=== PATIENT | female | born 1990 | race Caucasian/White ===

== ENCOUNTER 2018-02-04 05:52 | Inpatient (IN) | payer OTHER ==
[2018-02-04] VITALS (12 sets, daily range): BP systolic 87–142; BP diastolic 44–85; PULSE 74–113; RESP 16–19; TEMP 97.6–98.3; O2SAT 98–100
[~2018-02-04] VITALS: Ht 162.6 cm; Wt 102.0 kg
[2018-02-04] MEDS ORDERED: PRENTAB7 (06:14)
[2018-02-04] MEDS ORDERED: VALT1TAB PO (06:14)
[2018-02-04] MEDS ORDERED: ceFAZolin 2 GM PREMIX 50 ML IV SCH (06:15)
[2018-02-04] MEDS ORDERED: LACTATED RINGER'S 1000 ML IV ONE (06:15)
[2018-02-04] MEDS ORDERED: LACTATED RINGER'S 1000 ML IV SCH (06:15)
[2018-02-04] MEDS ORDERED: CITRIC ACID-SODIUM CITRATE LIQ 30 ML UDC PO SCH (06:15)
[2018-02-04 07:07] LABS: AUTOMATED NEUTROPHIL # 7.3 TH/MM3 (1.8-7.7); BASOPHIL # 0.1 TH/MM3 (0-0.2); BASOPHIL % 0.5 % (0.0-2.0); EOSINOPHIL # 0.4 TH/MM3 (0-0.4); EOSINOPHIL % 4.2 % (0.0-4.0); HEMATOCRIT 33.4 % (35.0-46.0); HEMOGLOBIN 11.4 GM/DL (11.6-15.3); MEAN CELL VOLUME 84.6 FL (80.0-100.0); MEAN CORPUSCULAR HEMOGLOBIN 28.8 PG (27.0-34.0); MEAN CORPUSCULAR HGB CONC 34.1 % (32.0-36.0); MEAN PLATELET VOLUME 8.4 FL (7.0-11.0); MONO % 5.9 % (0.0-8.0); MONOCYTE # 0.6 TH/MM3 (0-0.9); NEUT % 70.4 % (16.0-70.0); PLATELET COUNT 187 TH/MM3 (150-450); RED BLOOD COUNT 3.95 MIL/MM3 (4.00-5.30); RED CELL DISTRIBUTION WIDTH 14.9 % (11.6-17.2); WHITE BLOOD COUNT 10.4 TH/MM3 (4.0-11.0)
[2018-02-04] MEDS ORDERED: MORPHINE SULFATE PF 5 MG/10 ML VIAL ONE (07:07)
[2018-02-04] MEDS ORDERED: ACETAMINOPHEN 1000 MG/100 ML 100 ML IV ONE ×2 (07:08→09:00)
[2018-02-04 08:53] LABS: BILIRUBIN, URINE NEG (NEG); BLOOD, URINE NEG (NEG); CALCIUM OXALATE CRYSTALS,URINE RARE /hpf; GLUCOSE,URINE NEG (NEG); KETONE, URINE NEG (NEG); MUCUS URINE MOD /lpf (OCC); NITRITE,URINE NEG (NEG); SQUAMOUS EPITHELIAL CELL URINE 15 /hpf (0-5); URINE COLOR YELLOW (YELLW/STRAW); URINE LEUKOCYTE ESTERASE MOD (NEG)
[2018-02-04] MEDS ORDERED: SIMETHICONE 80 MG CHEWABLE TAB PO PRN (09:00)
[2018-02-04] MEDS ORDERED: oxyCODONE/ACETAMINOPHEN 5 MG/325 MG TAB PO PRN (09:00)
[2018-02-04] MEDS ORDERED: SODIUM CHLORIDE 0.9% FLUSH 10 ML FLUSH IV FLUSH PRN (09:00)
[2018-02-04] MEDS ORDERED: ZOLPIDEM TARTRATE 5 MG TAB PO PRN (09:00)
[2018-02-04] MEDS ORDERED: OXYTOCIN 30 UNITS-500ML PREMIX 500 ML IV ONE (09:00)
[2018-02-04] MEDS: SODIUM CHLORIDE 0.9% FLUSH 10 ML FLUSH IV FLUSH SCH (09:00)
[2018-02-04] MEDS ORDERED: ONDANSETRON HCL 4 MG/2 ML VIAL IV PUSH PRN (09:00)
[2018-02-04] MEDS ORDERED: KETOROLAC TROMETHAMINE 60 MG/2 ML (IM) VIAL IM PRN ×2 (09:00)
[2018-02-04] MEDS ORDERED: OXYTOCIN 30 UNITS-500ML PREMIX 500 ML ONE (09:47)
[2018-02-04] MEDS ORDERED: OXYTOCIN 10 UNIT/ML AMP XX ONE (10:00)
[2018-02-04] MEDS ORDERED: PHENYLEPH/NS 1000 MCG/10 ML SYR IV ONE (12:00)
[2018-02-04] MEDS ORDERED: DEXAMETHASONE SOD PHOS 4 MG/ML VIAL IV ONE (12:00)
[2018-02-04] MEDS ORDERED: KETOROLAC TROMETHAMINE 30 MG/ML (IVP) VIAL IV PUSH ONE (12:00)
[2018-02-04] MEDS ORDERED: ePHEDrine/NS 25 MG/5 ML SYRINGE IV ONE (12:00)
[2018-02-04] MEDS ORDERED: LACTATED RINGER'S 1000 ML INJ 1,000 ML IV ONE (12:00)
[2018-02-04] MEDS ORDERED: STERILE WATER FOR INJECTION 20 ML VIAL IV ONE (12:00)
[2018-02-04] MEDS ORDERED: OXYTOCIN 10 UNIT/ML AMP IV ONE (12:00)
[2018-02-04] MEDS ORDERED: ceFAZolin INJ 1,000 MG VIAL IV ONE (12:00)
[2018-02-04] MEDS ORDERED: ONDANSETRON HCL 4 MG/2 ML VIAL IV ONE (12:00)
[2018-02-04] MEDS: LACTATED RINGER'S 1000 ML INJ 1,000 ML IV SCH ×2 (13:18→23:54)
[2018-02-04] MEDS ORDERED: OXYTOCIN 30 UNITS-500ML PREMIX 500 ML IV PRN (19:00)
--- NOTE | 2018-02-04 19:29 | PD.OP ---
Operative Report Date of Surgery: Feb 04, 2018 Preoperative Diagnosis: (1) Postoperative Diagnosis: (1) delivery, delivered, current hospitalization Procedure: Repeat Low transverse , lysis of adhesions Anesthesia: spinal Surgeon: Marilin Reyes MD Coagulating Operator(s): none Operation and Findings: After informed consent was obtained, she consented. Her previous incision is incised in the usual fashion. The underlying layer of fascia is reached using the Bovie. The fascia is incised in the midline and the incision is extended laterally. Irene clamps were used to elevate the fascia superiorly and inferiorly and the rectus muscles are dissected off. The peritoneum was identified and entered sharply. The bladder blade was inserted. The vesicouterine peritoneum was identified, tented open and entered sharply. The bladder blade was then reinserted. A transverse incision was made over the lower uterine segment to layer just exposing membranes; these were ruptured for clear fluid. The uterine incision was extended laterally digitally. The vertex is then delivered atraumatically with the vacuum. The remainder of the body is delivered through the incision. The cord is doubly clamped and cut. The infant is passed off to the waiting nursery team. Once this was done, attention is then turned back to the uterine field. The placenta is removed manually intact with three-vessel cord. The uterus was exteriorized, cleared of all clot and debris. The uterine incision was repaired using 1 Chromic suture in a running locked fashion. Additional stitches of O chromic suture were used to assure hemostasis. Once this was done attention was then turned back to the uterine incision which remained hemostatic. The uterus was returned to the abdominal cavity. The gutters were cleared of all clot and debris. Seprafilm was placed over the incision. The rectus muscles were re-approximated using 0 Chromic suture in interrupted fashion. The fascia was re-approximated using 1 Vicryl suture in a running fashion. The subcutaneous fat is irrigated and made hemostatic and re- approximated using 3-0 Chromic suture. The skin is closed using 3-0 Monocryl suture. Marilin Reyes MD Feb 04, 2018 19:29
[2018-02-04] MEDS: DOCUSATE SODIUM 50 MG/SENNA 8.6 MG TAB PO PRN (23:54)
[2018-02-04] MEDS: IBUPROFEN 600 MG TAB PO PRN (23:55)
[2018-02-05 04:00] VITALS: BP 131/64; PULSE 106; RESP 17; TEMP 97.6; O2SAT 96
[2018-02-05 06:26] LABS: AUTOMATED NEUTROPHIL # 10.6 TH/MM3 (1.8-7.7); BASOPHIL % 0.2 % (0.0-2.0); EOSINOPHIL # 0.2 TH/MM3 (0-0.4); EOSINOPHIL % 1.5 % (0.0-4.0); HEMATOCRIT 30.5 % (35.0-46.0); HEMOGLOBIN 10.2 GM/DL (11.6-15.3); LYMPH % 11.2 % (9.0-44.0); LYMPHOCYTE # 1.4 TH/MM3 (1.0-4.8); MEAN CELL VOLUME 83.9 FL (80.0-100.0); MEAN CORPUSCULAR HEMOGLOBIN 28.1 PG (27.0-34.0); MEAN CORPUSCULAR HGB CONC 33.5 % (32.0-36.0); MEAN PLATELET VOLUME 8.4 FL (7.0-11.0); MONO % 5.3 % (0.0-8.0); MONOCYTE # 0.7 TH/MM3 (0-0.9); NEUT % 81.8 % (16.0-70.0); PLATELET COUNT 168 TH/MM3 (150-450); RED BLOOD COUNT 3.63 MIL/MM3 (4.00-5.30); RED CELL DISTRIBUTION WIDTH 15.1 % (11.6-17.2); WHITE BLOOD COUNT 12.9 TH/MM3 (4.0-11.0)
[2018-02-05] MEDS: IBUPROFEN 600 MG TAB PO PRN ×3 (06:29→19:13)
[2018-02-05] MEDS: SODIUM CHLORIDE 0.9% FLUSH 10 ML FLUSH IV FLUSH SCH (07:53)
[2018-02-05 08:00] VITALS: BP 135/71; PULSE 103; RESP 20; TEMP 97.6; O2SAT 97
--- NOTE | 2018-02-05 10:58 | HHI.OB ---
Subjective Post Day: 1 Remarks doing well Objective Vitals/I&O Vital Signs Date Time Temp Pulse Resp B/P (MAP) Pulse Ox O2 Delivery O2 Flow Rate FiO2 02/05/18 08:00 97.6 20 97 02/05/18 08:00 103 135/71 (92) 02/05/18 04:00 97.6 106 17 96 02/05/18 04:00 131/64 (86) 02/04/18 23:49 98.3 102 19 114/71 (85) 02/04/18 20:33 98.3 105 18 114/69 (84) 02/04/18 13:00 98.3 89 18 98 02/04/18 13:00 142/71 (94) 02/04/18 11:00 98.3 89 18 98 02/04/18 11:00 142/71 (94) Objective Remarks GENERAL: Well-nourished, well-developed patient. ABDOMEN/GI: Abdomen soft, non-tender. Fundus: Firm, non-tender at umbilicus. GENITOURINARY: Light to moderate bleeding. EXTREMITIES: No cyanosis or edema, non-tender, without signs of DVT. Medications and IVs Current Medications Medications (Trade) Dose Ordered Sig/Vasyl Route Start Time Stop Time Status Last Admin (Bicitra Liq) 30 ml GIS WEB DEVELOPER PO 02/04/18 06:15 02/07/18 06:14 02/04/18 07:21 Cefazolin Sodium/ Dextrose 50 ml @ 100 mls/hr GIS WEB DEVELOPER IV 02/04/18 06:15 02/07/18 06:14 Oxytocin 500 ml @ 100 mls/hr UNSCH X1 PRN IV 02/04/18 19:00 02/05/18 18:59 (NS Flush) 2 ml BID IV FLUSH 02/04/18 09:00 (NS Flush) 2 ml UNSCH PRN IV FLUSH 02/04/18 09:00 (Mylicon Chew) 80 mg QID PRN PO 02/04/18 09:00 (Motrin) 600 mg Q6H PRN PO 02/04/18 09:00 02/05/18 06:29 (Percocet 5-325 Mg) 1 tab Q4H PRN PO 02/04/18 09:00 (Percocet 5-325 Mg) 2 tab Q4H PRN PO 02/04/18 09:00 (Idania-Colace) 2 tab Q12H PRN PO 02/04/18 09:00 02/04/18 23:54 (Ambien) 5 mg HS PRN PO 02/04/18 09:00 (M-M-R Ii Inj) 0.5 ml ONCE ONCE SQ 02/05/18 16:00 02/05/18 16:01 (Boostrix Inj) 0.5 ml ONCE ONCE IM 02/05/18 16:00 02/05/18 16:01 (Zofran Inj) 4 mg Q6H PRN IV PUSH 02/04/18 09:00 Assessment/Plan Problem List: (1) delivery, delivered, current hospitalization ICD Codes: O82 - Encounter for delivery without indication Néstor Lange MD Feb 05, 2018 10:58
--- NOTE | 2018-02-05 10:59 | HHI.DCPOC ---
Discharge Care Plan Diagnosis: (1) delivery, delivered, current hospitalization Report Symptoms to Your Doctor -Temperature above 100.5 degrees -Redness, of incision or excessive or foul smelling drainage -Unusual pain or calf pain -Increased vaginal bleeding -Painful or difficulty urinating -Feelings of extreme sadness or anxiety after 2 weeks Goals to Promote Your Health * To prevent worsening of your condition and complications * To maintain your health at the optimal level Directions to Meet Your Goals Take your medications as prescribed Follow your dietary instruction Follow activity as directed Ensure plenty of rest for recovery Drink fluids for hydration Keep your appointments as scheduled Take your immunizations and boosters as scheduled If your symptoms worsen call your PCP, if no PCP go to Urgent Care Center or Emergency Room Smoking is Dangerous to Your Health. Avoid second hand smoke Call the 24-hour crisis hotline for domestic abuse at Néstor Lange MD Feb 05, 2018 10:59
[2018-02-05] MEDS ORDERED: OXYC1TAB63 PO (11:00)
[2018-02-05] MEDS: DOCUSATE SODIUM 50 MG/SENNA 8.6 MG TAB PO PRN (13:11)
[2018-02-05] MEDS: oxyCODONE/ACETAMINOPHEN 5 MG/325 MG TAB PO PRN ×2 (13:12→19:13)
[2018-02-05] MEDS ORDERED: DIPHTH/TETANUS/ACEL PERTUSSIS (BOOSTER) 0.5 ML VIAL/PFS IM ONE (16:00)
[2018-02-05] MEDS ORDERED: MEASLES, MUMPS, RUBELLA VACCINE 0.5 ML VIAL SQ ONE (16:00)
[2018-02-05 21:08] VITALS: BP 131/77; PULSE 112; RESP 18; TEMP 98.3
[2018-02-06] MEDS: IBUPROFEN 600 MG TAB PO PRN (03:15)
[2018-02-06] MEDS: oxyCODONE/ACETAMINOPHEN 5 MG/325 MG TAB PO PRN (03:16)
--- NOTE | 2018-02-06 07:15 | HHI.OB ---
Subjective Post Day: 2 Remarks doing well Objective Vitals/I&O Vital Signs Date Time Temp Pulse Resp B/P (MAP) Pulse Ox O2 Delivery O2 Flow Rate FiO2 02/05/18 21:08 98.3 112 18 131/77 (95) 02/05/18 08:00 97.6 20 97 02/05/18 08:00 103 135/71 (92) Objective Remarks GENERAL: Well-nourished, well-developed patient. ABDOMEN/GI: Abdomen soft, non-tender. Fundus: Firm, non-tender at umbilicus. GENITOURINARY: Light to moderate bleeding. EXTREMITIES: No cyanosis or edema, non-tender, without signs of DVT. Medications and IVs Current Medications Medications (Trade) Dose Ordered Sig/Vasyl Route Start Time Stop Time Status Last Admin (Bicitra Liq) 30 ml DOCKET SPECIALIST PO 02/04/18 06:15 02/07/18 06:14 02/04/18 07:21 Cefazolin Sodium/ Dextrose 50 ml @ 100 mls/hr DOCKET SPECIALIST IV 02/04/18 06:15 02/07/18 06:14 (NS Flush) 2 ml BID IV FLUSH 02/04/18 09:00 (NS Flush) 2 ml UNSCH PRN IV FLUSH 02/04/18 09:00 (Mylicon Chew) 80 mg QID PRN PO 02/04/18 09:00 (Motrin) 600 mg Q6H PRN PO 02/04/18 09:00 02/06/18 03:15 (Percocet 5-325 Mg) 1 tab Q4H PRN PO 02/04/18 09:00 02/06/18 03:16 (Percocet 5-325 Mg) 2 tab Q4H PRN PO 02/04/18 09:00 (Idania-Colace) 2 tab Q12H PRN PO 02/04/18 09:00 02/05/18 13:11 (Ambien) 5 mg HS PRN PO 02/04/18 09:00 (Zofran Inj) 4 mg Q6H PRN IV PUSH 02/04/18 09:00 Assessment/Plan Problem List: (1) delivery, delivered, current hospitalization ICD Codes: O82 - Encounter for delivery without indication Discharge Planning doing well Néstor Lange MD Feb 06, 2018 07:15
--- NOTE | 2018-02-06 07:17 | HHI.DS ---
Admission Date Feb 04, 2018 at 05:52 Discharge Date: Feb 06, 2018 Admitting Diagnosis doing well Diagnosis: (1) delivery, delivered, current hospitalization Diagnosis: Principal ICD Codes: O82 - Encounter for delivery without indication : Repeat Brief History patient came for repeat CS Hospital Course Doing well Pod # 2 ready for DC Pt Condition on Discharge: Good Discharge Disposition: Discharge Home Discharge Instructions Activities You Can Perform: Pelvic Rest Activities to Avoid: Driving for 24 hrs Follow up Referrals: [facility]ATE[facility] ACCOUNTS MANAGER - 2 Weeks @ [facility] with N[facility]stor Lange MD New Medications: Oxycodone HCl/Acetaminophen (Oxycodone-Acetaminophen 5-325) 5 Mg-325 Mg Tablet 2 TAB PO Q4H PRN for PAIN SCALE 6 TO 10, #30 TAB Discontinued Medications: Pnv No.95/Ferrous Fum/Folic AC ( Vitamins Tablet) 28 Mg Iron-800 Mcg Tablet Valacyclovir (Valtrex) 1,000 Mg Tab 1000 MG PO DAILY for Mgmt Viral Infection, #30 TAB 0 Refills Néstor Lange MD Feb 06, 2018 07:17
[2018-02-06 08:30] VITALS: BP 105/60; PULSE 100; RESP 18; TEMP 98
[2018-02-06] MEDS: SODIUM CHLORIDE 0.9% FLUSH 10 ML FLUSH IV FLUSH SCH (09:01)
== END 2018-02-06 11:49 | disposition home or self-care (01) | DRG 766 ==
LOC: H2EB 05:52 → H1EA 10:39
PROVIDERS: ADMIT Obstetrics & Gynecology; ATTEND Obstetrics & Gynecology
PROC: 10D00Z1 Extraction of Products of Conception, Low, Open Approach (ICD-10-PCS; principal; 2018-02-04)
PROC: 3E0P05Z Introduction of Adhesion Barrier into Female Reproductive, Open Approach (ICD-10-PCS; 2018-02-04)
DX: O34.211 Maternal care for low transverse scar from previous cesarean delivery (principal); Z37.0 Single live birth; Z3A.37 37 weeks gestation of pregnancy
CPT/HCPCS: 59025; 80307; 81001; 85025; 86703; 86850; 86900; 86901; 90715; C1765; J0131; J0690; J1100; J1885; J2274; J2370; J2405; J2590; J7120

== ENCOUNTER 2018-02-10 21:13 | Emergency (ER) | payer OTHER ==
[~2018-02-10 21:13] MED LIST: OXYC1TAB63 PO
== END 2018-02-10 22:14 | disposition left against medical advice (07) ==
LOC: NED 21:13
DX: R06.00 Dyspnea, unspecified (principal); Z53.21 Procedure and treatment not carried out due to patient leaving prior to being seen by health care provider
CPT/HCPCS: 99281